=== PATIENT | male | born 1955 | race Caucasian/White ===

== ENCOUNTER 2020-03-11 19:16 | Emergency (ER) | payer BC, SELFPAY ==
[2020-03-11] VITALS (8 sets, daily range): BP systolic 150–180; BP diastolic 87–99; PULSE 76–79; RESP 16–23; TEMP 36.9; O2SAT 97–99; BMI 28.1
[2020-03-11 19:33] LABS: Add Manual Diff / Slide Review NO; Basophils Absolute Auto 100 /uL (0-100); Basophils Percent Auto 0.7 % (0-2); Eosinophils Absolute Auto 200 /uL (0-450); Hematocrit 40.3 % (41-53); Hemoglobin 13.4 g/dL (13.5-17.5); Lymphocytes Absolute Auto 2500 /uL (1100-4500); Lymphocytes Percent Auto 32.2 % (25-40); Mean Corpuscular HGB Conc 33.2 % (30-36); Mean Corpuscular Hemoglobin 30.8 PG (26-34); Mean Corpuscular Volume 92.6 fL (80-100); Monocytes Absolute Auto 600 /uL (0-900); Monocytes Percent Auto 8.1 % (3-14); Neutrophils Absolute Auto 4400 /uL (1500-7000); Platelet Count 208 X10^3/uL (150-400); Red Blood Cell Count 4.36 X10^6/uL (4.5-5.9); White Blood Cell Count 7.8 X10^3/uL (4.5-11.0)
--- NOTE | 2020-03-11 19:34 | DI.CT.S_ITS ---
PROCEDURE: CT HEAD/BRAIN WO CON INDICATIONS: syncope with history of Intracranial hemorrage TECHNIQUE: Noncontrast 4.5 mm thick angled axial sections acquired from the foramen magnum to the vertex, with coronal and sagittal reformats. For radiation dose reduction, the following was used: automated exposure control, adjustment of mA and/or kV according to patient size. COMPARISON: None. FINDINGS: Image quality: Excellent. CSF spaces: Basal cisterns are patent. No extra-axial fluid collections. The ventricles are symmetric in size and shape. Brain: No intracranial bleeds or masses. There is mild cerebral volume loss for age, with resultant ventricular and sulcal prominence. There are mild periventricular and deep white matter chronic small vessel ischemic changes. There is intracranial internal carotid artery atherosclerosis. Skull and face: Calvarium and visualized facial bones appear intact, without suspicious lesions. Sinuses: Visualized sinuses and mastoids are clear. IMPRESSION: 1. No acute intracranial abnormalities. 2. Cerebral volume loss and chronic microvascular ischemic changes. Dictated by: Donald Pizarro M.D. on 03/11/2020 at 20:03 Approved by: Donald Pizarro M.D. on 03/11/2020 at 20:06
[2020-03-11 19:45] LABS: Alanine Aminotransferase 25 IU/L (<50); Albumin 4.5 g/dL (3.5-5.0); Albumin Globulin Ratio 1.3 (1.0-2.8); Alkaline Phosphatase 72 U/L (38-126); Aspartate Aminotransferase 29 IU/L (17-59); BUN Creatinine Ratio 19.8 (6-22); Bilirubin Total 0.6 mg/dL (0.2-1.3); Blood Urea Nitrogen 22 mg/dL (9-20); Calcium 9.7 mg/dL (8.4-10.2); Carbon Dioxide 25 mmol/L (22-32); Chloride 101 mmol/L (98-107); Estimated Glomerular Filt Rate > 60.0 mL/min (>60); Globulin 3.4 g/dL (1.7-4.1); Glucose 146 mg/dL (80-110); HEMOLYSIS < 15 (0-50); Lipase 194 U/L (23-300); Potassium 3.5 mmol/L (3.4-5.1); Sodium 137 mmol/L (137-145); Total Protein 7.9 g/dL (6.3-8.2)
--- NOTE | 2020-03-11 20:18 | ED.GENADULT ---
HPI - General Adult General Chief complaint: Syncope Stated complaint: Syncope Time Seen by Provider: 03/11/20 19:17 Source: patient Mode of arrival: EMS Limitations: no limitations History of Present Illness HPI narrative: Patient is a 64-year-old male who is brought in by EMS for a syncopal episode. Patient states that he was sitting at the table in just finishing dinner when he states that he started to feel like his head was feeling funny and he started to get tunnel vision. He looked at the people he was sitting at the table within stated that he thought that he was going to pass out. The next thing he remembers was his friend's standing over top of him. He denied any prodromal symptoms to include chest pain or palpitations. No headache. Did not feel sweaty. He states that he has had this happen him in the past. He also had an episode approximately 3 months ago when he was at a bar and went in to go to the bathroom and he was found leaning up against the wall. At that point he had a head CT and was found to have a head bleed. This required rafaela holes to treat and a period of time in the hospital. None of this information is available for my review. He is visiting the local area from [place]. He states that he was told that his head bleed was secondary to high blood pressure and not from any fall. At the time of my evaluation he has no symptoms. Review of Systems Constitutional Constitutional: Denies daytime sleepiness, Denies fever(s), Denies headache(s) and Denies malaise Eyes Comments: Tunnel vision ENT Ears, Nose, Mouth, and Throat: Denies vertigo, Denies dizziness, Denies headache(s), Denies sinus pain and Denies sore throat Cardiovascular Cardiovascular: Denies chest pain, Reports syncope and Denies dyspnea Respiratory Respiratory: Denies dyspnea Gastrointestinal Gastrointestinal: Denies abdominal pain, Denies nausea and Denies vomiting Genitourinary Genitourinary: Denies dysuria Genitourinary: Denies dysuria Musculoskeletal Musculoskeletal: Denies arthralgias and Denies myalgias Integumentary/Breasts Skin/Breast: Denies lesions and Denies rash Neurologic Neurologic: Denies confusion, Denies vertigo, Denies dizziness, Reports syncope and Denies headache(s) Psychiatric Psychiatric: Denies anxiety and Denies confusion Hematologic/Lymphatic Hematologic/Lymphatic: Denies easy bleeding and Denies easy bruising Allergic/Immunologic Allergic/Immunologic: Denies urticaria Patient History Medical History Hypertension Intracranial hemorrhage Social History lives independently: Yes Exam Initial Vital Signs Initial Vital Signs: Vital Signs Pulse Rate 79 03/11/20 19:26 Respiratory Rate 22 03/11/20 19:26 Pulse Oximetry 99 03/11/20 19:26 Const General: cooperative, comfortable and well developed Limitations: mental status not altered HENMT Head: normal to inspection and normocephalic Resp Effort & Inspection: normal respiratory effort Auscultation: clear to auscultation bilaterally Cardio Rate: regular rate Rhythm: regular rhythm GI Inspection: non-distended Palpation: soft, No firm and No tender Skin Lesions: no lesions Rashes: no rashes Neuro General: patient alert, patient awake and patient oriented x3 Cognition: normal cognition Speech: speech normal Motor: muscle tone normal throughout Extrem General: normal to inspection and capillary refill normal Psych Appearance: grossly normal and well kempt Scores GCS Jair coma scale eye opening: Spontaneous Jair coma scale verbal response: Orientated Jair coma scale motor response: Obey commands Jair coma scale total score: 15 Course Orders Ordered: ED Orders 03/11/20 19:17 EKG-12 Lead Stat 03/11/20 19:24 Complete Blood Count AUTO DIFF Stat Comprehensive Metabolic Panel Stat Lipase Stat 03/11/20 19:34 CT head/brain wo con Stat Vital Signs Vital signs: Vital Signs - 8 hr 03/11/20 19:26 03/11/20 19:29 03/11/20 19:30 Temperature 98.4 F Pulse Rate 79 78 77 Respiratory Rate 22 16 21 Blood Pressure 163/99 H 162/90 H Pulse Oximetry 99 97 99 03/11/20 19:55 03/11/20 20:00 03/11/20 20:30 Temperature Pulse Rate 79 77 79 Respiratory Rate 16 18 19 Blood Pressure 180/91 H 158/87 H 158/96 H Pulse Oximetry 97 98 98 03/11/20 21:00 03/11/20 21:04 Temperature Pulse Rate 77 76 Respiratory Rate 19 23 Blood Pressure 162/93 H 150/98 H Pulse Oximetry 97 97 Medical Decision Making Lab Data Lab results reviewed: Yes I reviewed the patient's lab results. Result diagrams: 03/11/20 19:24 03/11/20 19:24 Labs: Lab Results 03/11/20 03/11/20 Range/Units 19:24 19:24 WBC 7.8 (4.5-11.0) X10^3/uL RBC 4.36 L (4.5-5.9) X10^6/uL Hgb 13.4 L (13.5-17.5) g/dL Hct 40.3 L (41-53) % MCV 92.6 (80-100) fL MCH 30.8 (26-34) PG MCHC 33.2 (30-36) % RDW 13.0 (11.6-14.8) % Plt Count 208 (150-400) X10^3/uL Neut % (Auto) 57.0 (50-75) % Lymph % (Auto) 32.2 (25-40) % [place] % (Auto) 8.1 (3-14) % Eos % (Auto) 2.0 (2-4) % Baso % (Auto) 0.7 (0-2) % Neut # (Auto) 4400 (0954-1554) /uL Lymph # (Auto) 2500 (1171-8716) /uL [place] # (Auto) 600 (0-900) /uL Eos # (Auto) 200 (0-450) /uL Baso # (Auto) 100 (0-100) /uL Sodium 137 (137-145) mmol/L Potassium 3.5 (3.4-5.1) mmol/L Chloride 101 (98-107) mmol/L Carbon Dioxide 25 (22-32) mmol/L BUN 22 H (9-20) mg/dL Creatinine 1.11 (0.66-1.25) mg/dL Estimated GFR > 60.0 (>60) mL/min BUN/Creatinine Ratio 19.8 (6-22) Glucose 146 H (80-110) mg/dL Calcium 9.7 (8.4-10.2) mg/dL Total Bilirubin 0.6 (0.2-1.3) mg/dL AST 29 (17-59) IU/L ALT 25 (<50) IU/L Alkaline Phosphatase 72 (38-126) U/L Total Protein 7.9 (6.3-8.2) g/dL Albumin 4.5 (3.5-5.0) g/dL Globulin 3.4 (1.7-4.1) g/dL Albumin/Globulin Ratio 1.3 (1.0-2.8) Lipase 194 (23-300) U/L Point of Care Testing Glucose POC 120 Point of care testing: Point of Care Testing Glucose POC [address] scan - head: Radiologist's Impression: [address] [id number] Scan ReportSigned Patient: Can Payton BMR#: [id number]: 8Acct:[id number]/Sex: 64 / MDate of Service: 03/11/20Loc: EDAccession Number: [id number] Procedure: CT head/brain wo con Ordering Provider: Reed Enciso D.O. PROCEDURE: CT HEAD/BRAIN WO CON INDICATIONS: syncope with history of Intracranial hemorrage TECHNIQUE: Noncontrast 4.5 mm thick angled axial sections acquired from the foramen magnum to the vertex, with coronal and sagittal reformats. For radiation dose reduction, the following was used: automated exposure control, adjustment of mA and/or kV according to patient size. COMPARISON: None. FINDINGS: Image quality: Excellent. CSF spaces: Basal cisterns are patent. No extra-axial fluid collections. The ventricles are symmetric in size and shape. Brain: No intracranial bleeds or masses. There is mild cerebral volume loss for age, with resultant ventricular and sulcal prominence. There are mild periventricular and deep white matter chronic small vessel ischemic changes. There is intracranial internal carotid artery atherosclerosis. Skull and face: Calvarium and visualized facial bones appear intact, without suspicious lesions. Sinuses: Visualized sinuses and mastoids are clear. IMPRESSION: 1. No acute intracranial abnormalities. 2. Cerebral volume loss and chronic microvascular ischemic changes. Dictated by: Donald Pizarro M.D. on 03/11/2020 at 20:03 Approved by: Donald Pizarro M.D. on 03/11/2020 at 20:06 ECG Data Attestation: I personally reviewed and interpreted this ECG as follows: Prior ECG tracings: not available for review Interpretation: Sinus rhythm Ventricular rate is 77 Normal axis Normal QRS Normal QTC No ST T wave changes MDM Narrative Medical decision making narrative: Patient with a normal neurologic exam. Head CT is unremarkable. EKG is unremarkable. Labs unremarkable. His symptoms are not consistent with a stroke. Not consistent with CVA or TIA. Patient not hypoglycemic. Electrolytes unremarkable. We did discuss the potential etiologies of syncope. Informed him that he needed to talk with his primary doctor about a Holter monitor. No signs of intracranial hemorrhage on the CT scan. Feel patient can be discharged home without further workup. He was given return precautions and follow-up instructions. He expressed understanding and agreement. Discharge Plan Departure Patient Disposition: Home Clinical Impression: Syncope Instructions: DI for Syncope in Adults (Fainting) Activity Restrictions/Additional Instructions: Recommend that you continue to take your blood pressure medicine like we discussed. Contact your primary provider to discuss the indications for a Holter monitor. Return to the emergency department for any new or worsening symptoms
== END 2020-03-11 21:09 | disposition home or self-care (01) ==
PROVIDERS: Emergency Provider Emergency Medicine
DX: R55 Syncope and collapse (principal); I10 Essential (primary) hypertension; Z86.79 Personal history of other diseases of the circulatory system; R07.9 Chest pain, unspecified
CPT/HCPCS: 36415; 70450; 80053; 83690; 85025; 93005; 99284